=== PATIENT | male | born 1955 | race Caucasian/White ===

== ENCOUNTER 2018-07-19 21:16 | Emergency (ER) | payer MEDICAID, OTHER ==
[~2018-07-19] VITALS: Ht 177.8 cm; Wt 99.8 kg
[~2018-07-19 21:16] MED LIST: OMEP40EC1 PO; PAX20 PO
--- NOTE | 2018-07-19 21:18 | NUR ---
PT TAKEN TO BED 8
[2018-07-19 21:20] VITALS: BP 115/92
--- NOTE | 2018-07-19 21:20 | NUR ---
PT BIB FAMILY AND RECEIVED TO BED 8 VIA W/C. ASSUMED CARE OF PT AT THIS TIME. C/O ETOH INTOXICATION AND ANXIETY. PT IS TEARFUL W/ INCOHERENT, SLURRED SPEECH.0/10 PAIN NOTED AT THIS TIME; VSS; PATIENT POSITIONED FOR COMFORT; HOB ELEVATED; BEDRAILS UP X2; BED DOWN. ER MD MADE AWARE OF PT STATUS. WILL CONTINUE TO MONITOR.
--- NOTE | 2018-07-19 21:25 | NUR ---
PT DISROBED COMPLETELY AND PLACED IN HOPSITAL GOWN AND SLIPPERS. ALL PERSONAL BELONGINGS PLACED IN BAGS AND HANDED OVER TO DAUGHTER FOR SAFEKEEPING. ALL BEDSIDE EQUIPMENT REMOVED AND CABINETS LOCKED OR SECURED IN PLACE. SITTER PLACED AT BEDSIDE FOR OBSERVATION.
[2018-07-19] MEDS ORDERED: NACL 0.9% 1,000 ML IV ONE (21:30)
--- NOTE | 2018-07-19 21:44 | NUR ---
EKG PERFORMED AT BEDSIDE. PT COVERED IN GOWN DURING PROCEDURE
--- NOTE | 2018-07-19 21:51 | NUR ---
Dr. Ortiz evaluating patient at bedside.
[2018-07-19 21:55] LABS: BASOPHILS % (AUTO) 0.4 % (0.0-2.0); EOSINOPHILS # (AUTO) 0.1 K/uL (0-0.4); EOSINOPHILS % (AUTO) 1.2 % (0.0-4.0); MEAN CORPUSCULAR HEMOGLOBIN 30 pg (27-31); MONOCYTES # (AUTO) 0.6 K/uL (0.8-1.0)
[2018-07-19] MEDS ORDERED: LORazepam 2 MG/ML VIAL IVP ONE (22:05)
[2018-07-19 22:10] LABS: HEMATOCRIT 47.5 % (36-52); HEMOGLOBIN 16.1 g/dL (12.0-18.0); MEAN CORPUSCULAR HGB CONC 34 g/dL (33-37); MONOCYTES % (AUTO) 6.3 % (1.7-9.3); NEUTROPHILS # (AUTO) 6.8 K/uL (1.8-7.7); NEUTROPHILS % (AUTO) 71.1 % (42.2-75.2); PLATELET COUNT (AUTO) 296 K/uL (140-450); WHITE BLOOD COUNT (AUTO) 9.5 K/uL (4.8-10.8)
--- NOTE | 2018-07-19 22:17 | NUR ---
PT MOVED TO BED 6
[2018-07-19 22:23] LABS: ANION GAP 12.8 (8-16); CHLORIDE 109 mmol/L (98-107); GFR ARICAN-AMERICAN 98 mL/min (>90); GLUCOSE 94 mg/dL (74-106); POTASSIUM 3.8 mmol/L (3.5-5.1); SODIUM SERUM 145 mmol/L (136-145); UREA NITROGEN, BLOOD 12 mg/dL (7-18)
[2018-07-19 22:28] LABS: ALBUMIN 3.7 g/dL (3.4-5.0); ASPARTATE AMINOTRANSFERASE 27 U/L (15-37); SALICYLATE 2.8 mg/dL (2.8-20.0); TOTAL BILIRUBIN 0.2 mg/dL (0.0-1.0)
[2018-07-19 22:29] LABS: ACETAMINOPHEN < 0.5 ug/ml (10-30)
[2018-07-19 22:55] LABS: BARBITURATE, URINE NEG. ng/ml (NEG <=200); BENZODIAZEPINE, URINE NEG. ng/mL (NEG <=200); CANNABINOID, URINE NEG. ng/mL (NEG <=50); COCAINE, URINE NEG. ng/mL (NEG <=300); OPIATE, URINE NEG. ng/mL (NEG <=2000); PHENCYCLIDINE SCREEN,URINE NEG. ng/mL (NEG <=25)
--- NOTE | 2018-07-20 02:33 | NUR ---
[place] [employer] AT BEDSIDE
[2018-07-20 02:40] VITALS: BP 104/64
--- NOTE | 2018-07-20 02:40 | NUR ---
Patient discharged with v/s stable. Written and verbal after care instructions given and explained. Patient verbalized understanding. Ambulatory with steady gait. All questions addressed prior to discharge. Advised to follow up with PMD.
== END 2018-07-20 02:40 | disposition home or self-care (01) ==
LOC: MED 21:16
DX: F10.129 Alcohol abuse with intoxication, unspecified (principal); I10 Essential (primary) hypertension; Z85.9 Personal history of malignant neoplasm, unspecified; Z86.73 Personal history of transient ischemic attack (TIA), and cerebral infarction without residual deficits; Z79.899 Other long term (current) drug therapy; Y90.8 Blood alcohol level of 240 mg/100 ml or more
CPT/HCPCS: 36415; 80053; 80305; 81002; 85025; 93005; 96374; 99284; G0480; G0482; J2060; J7030

== ENCOUNTER 2019-03-25 12:44 | Emergency (ER) | payer OTHER, MEDICAID ==
[~2019-03-25] VITALS: Ht 172.7 cm; Wt 91.2 kg
[~2019-03-25 12:44] MED LIST changes: -OMEP40EC1 PO; +OMEP40EC24 PO
[2019-03-25 13:02] VITALS: BP 126/84
--- NOTE | 2019-03-25 13:48 | NUR ---
DIANA FERGUSON AT BEDSIDE
[2019-03-25] MEDS ORDERED: KETOROLAC 60 MG/2 ML VIAL IM ONE (14:00)
--- NOTE | 2019-03-25 14:09 | NUR ---
[facility] IM ADMINISTERED
--- NOTE | 2019-03-25 14:10 | NUR ---
C/O LLQ PAIN RADIATING TO L LOWER BACK, SHARP & 5/10, FREQUENT URINATION, DYSURIA, NOCTURIA ACCOMPANIED BY NAUSEA AND WEAKNESS X 3 DAYS. DENIES VOMITING, DIARRHEA, FEVER. BOWEL SOUNDS ACTIVE IN ALL 4 QUADRANTS. ABDOMEN SOFT AND ROUND. VSS. AA0X4. BED IS DOWN, LOCKED, BED RAIL X 1, ERMD TO SEE PT. HX: HTN, ENLARGED PROSTATE, PAIN MGMT FOR R KNEE PROBLEMS , DEPRESSION/ANXIETY RX: EFFEXOR, BP MED UNKNOWN, NORCO
--- NOTE | 2019-03-25 14:28 | NUR ---
PT AT CT
[2019-03-25 14:58] LABS: BASOPHILS % (AUTO) 0.4 % (0.0-2.0); EOSINOPHILS # (AUTO) 0.1 K/uL (0-0.4); EOSINOPHILS % (AUTO) 1.5 % (0.0-4.0); HEMOGLOBIN 14.8 g/dL (12.0-18.0); LYMPHOCYTES # (AUTO) 1.8 K/uL (2.0-11.5); LYMPHOCYTES % (AUTO) 22.7 % (20.5-51.1); MEAN CORPUSCULAR HEMOGLOBIN 30 pg (27-31); MEAN CORPUSCULAR HGB CONC 34 g/dL (33-37); MEAN CORPUSCULAR VOLUME 88.5 fL (80-94); MONOCYTES # (AUTO) 0.7 K/uL (0.8-1.0); MONOCYTES % (AUTO) 9.4 % (1.7-9.3); NEUTROPHILS # (AUTO) 5.1 K/uL (1.8-7.7); PLATELET COUNT (AUTO) 252 K/uL (140-450); RED BLOOD CELL COUNT(AUTO) 4.97 MIL/uL (4.20-6.10); RED CELL DISTRIBUTION WIDTH 14.4 % (11.6-13.7); WHITE BLOOD COUNT (AUTO) 7.7 K/uL (4.8-10.8)
[2019-03-25 15:11] LABS: ANION GAP 13.4 (8-16); CARBON DIOXIDE 25.1 mmol/L (21-32); CREATININE 0.9 mg/dL (0.7-1.3); POTASSIUM 3.5 mmol/L (3.5-5.1)
[2019-03-25 15:20] LABS: ALBUMIN 3.6 g/dL (3.4-5.0); TOTAL BILIRUBIN 0.4 mg/dL (0.0-1.0)
[2019-03-25 15:24] LABS: APPEARANCE,URINE CLEAR (CLEAR); BILIRUBIN,URINE NEGATIVE (NEGATIVE); BLOOD, URINE NEGATIVE (NEGATIVE); COLOR,URINE YELLOW (YELLOW); LEUKOCYTE ESTERASE ,URINE NEGATIVE (NEGATIVE); NITRITE, URINE NEGATIVE (NEGATIVE); UGLUCOSE NEGATIVE (NEGATIVE)
--- NOTE | 2019-03-25 15:46 | NUR ---
VSS AT THIS TIME. AA0X4. ADRIANAISHAMAR BEDSIDE
[2019-03-25 16:18] VITALS: BP 127/78
--- NOTE | 2019-03-25 16:18 | NUR ---
Patient discharged with v/s stable. Written and verbal after care instructions given and explained. Patient alert, oriented and verbalized understanding of instructions. Ambulatory with steady gait. All questions addressed prior to discharge. ID band removed. Patient advised to follow up with PMD. Rx of FLEXERIL AND IBUPROFEN given. Patient educated on indication of medication including possible reaction and side effects. Opportunity to ask questions provided and answered. PT GIVEN COPY OF RESULTS AND EXCUSE FOR SCHOOL
== END 2019-03-25 16:18 | disposition home or self-care (01) ==
LOC: MED 12:44
DX: K57.90 Diverticulosis of intestine, part unspecified, without perforation or abscess without bleeding (principal); I10 Essential (primary) hypertension; F17.210 Nicotine dependence, cigarettes, uncomplicated; Z86.73 Personal history of transient ischemic attack (TIA), and cerebral infarction without residual deficits; Z79.899 Other long term (current) drug therapy; Z85.9 Personal history of malignant neoplasm, unspecified
CPT/HCPCS: 36415; 74176; 80053; 81003; 83690; 85025; 96372; 99284; J1885

== ENCOUNTER 2020-08-15 05:10 | Emergency (ER) | payer OTHER ==
[~2020-08-15] VITALS: Ht 172.7 cm; Wt 74.8 kg
[2020-08-15 05:10] VITALS: BP 145/82
--- NOTE | 2020-08-15 05:20 | NUR ---
PATIENT BIBA FOR C/O LACERATION ON L PINKY FINGER. BLEEDING CONTROLLED. DRESSING IN PLACE. 0/10 PAIN. PT DROWSY, ABLE TO ANSWER SIMPLE QUESTIONS, NOT ENGAGING IN CONVERSATION, SPEECH IS CLEAR. PERRL. UNABLE TO ASSESS PMH NKA
--- NOTE | 2020-08-15 06:12 | NUR ---
DR GOLDBERG AT BEDSIDE EXAMINING PATIENT
[2020-08-15] MEDS ORDERED: cefTRIAXone 1,000 MG in LIDOCAINE MPF 1% 2.1 ML IM ONE (06:20)
[2020-08-15] MEDS ORDERED: LIDOCAINE MPF 2% 100 MG/5 ML VIAL INJ ONE (06:20)
--- NOTE | 2020-08-15 06:31 | NUR ---
RAD AT BEDSIDE
[2020-08-15] MEDS ORDERED: cefTRIAXone 1,000 MG VIAL ONE (06:43)
[2020-08-15] MEDS ORDERED: LIDOCAINE MPF 1% 5 ML ONE (06:43)
--- NOTE | 2020-08-15 07:15 | NUR ---
TRANSFER OF CARE AT THIS TIME FROM [facility]LAH[facility].
--- NOTE | 2020-08-15 07:35 | NUR ---
ASSISTED ERMD WITH POSITIONING PTS HANDS AND FOR LACERATION REPAIR.
--- NOTE | 2020-08-15 08:22 | NUR ---
Called pts family member Frank to notify them of pts discharge. Family did not answer phone, left voicemail for family to olive picker pt at earliest convenience.
[2020-08-15] MEDS ORDERED: BACITRACIN OINT 500 UNITS/GM PKT TP ONE ×2 (08:25→08:47)
--- NOTE | 2020-08-15 08:37 | NUR ---
Called pts So Cifuentes, no answer. Will call back and follow up.
[2020-08-15 09:08] VITALS: BP 122/68
--- NOTE | 2020-08-15 09:08 | NUR ---
Patient discharged with v/s stable. Written and verbal after care instructions given and explained. Patient verbalized understanding. Wheel Chair Assisted with to home. All questions addressed prior to discharge. Advised to follow up with PMD.
== END 2020-08-15 09:08 | disposition home or self-care (01) ==
LOC: MED 05:10
DX: S61.217A Laceration without foreign body of left little finger without damage to nail, initial encounter (principal); I10 Essential (primary) hypertension; Z86.73 Personal history of transient ischemic attack (TIA), and cerebral infarction without residual deficits; Z85.89 Personal history of malignant neoplasm of other organs and systems; W26.8XXA Contact with other sharp object(s), not elsewhere classified, initial encounter; Y93.89 Activity, other specified; Y92.89 Other specified places as the place of occurrence of the external cause; Y99.8 Other external cause status
CPT/HCPCS: 12002; 73120; 90471; 90715; 96372; 99285; J0696; J2001

== ENCOUNTER 2020-08-24 17:03 | Emergency (ER) | payer OTHER ==
[~2020-08-24] VITALS: Ht 177.8 cm; Wt 95.3 kg
[2020-08-24 17:04] VITALS: BP 126/87
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
--- NOTE | 2020-08-24 17:07 | NUR ---
WILBERTO ALS TAKEN TO BED 5
--- NOTE | 2020-08-24 17:52 | NUR ---
emergency veterinary technician transported patient via [facility].
--- NOTE | 2020-08-24 18:25 | NUR ---
Dr. Montalvo is reevaluating patient at bedside.
--- NOTE | 2020-08-24 19:00 | NUR ---
Contacted Sonia (Daughter) who stated that he normally is homeless and does not have a place to stay. She does not feel safe with him to be discharged back home due to patient being off his medications (daughter unable to recall) x 3 weeks. Daughter also mentioned that he has a hx of alcoholism, bipolar, manic depression, S.I, kidney injury, HTN, and a fall with brain bleed which he was hospitalized in the ICU @ [place] in . Advised daughter I will update her with any status updates regarding his discharge planning.
--- NOTE | 2020-08-24 19:13 | NUR ---
Dr. Montalvo made aware of phone call with daughter.
[2020-08-24 19:20] VITALS: BP 134/85
--- NOTE | 2020-08-24 19:20 | NUR ---
Patient discharged with v/s stable. Written and verbal after care instructions given and explained. Patient verbalized understanding. Ambulatory with steady gait by cane. All questions addressed prior to discharge. Advised to follow up with PMD.
== END 2020-08-24 19:20 | disposition home or self-care (01) ==
LOC: MED 17:03
DX: S09.8XXA Other specified injuries of head, initial encounter (principal); I10 Essential (primary) hypertension; J44.9 Chronic obstructive pulmonary disease, unspecified; F17.210 Nicotine dependence, cigarettes, uncomplicated; F12.10 Cannabis abuse, uncomplicated; Z86.73 Personal history of transient ischemic attack (TIA), and cerebral infarction without residual deficits; W18.39XA Other fall on same level, initial encounter; Y93.89 Activity, other specified; Y92.89 Other specified places as the place of occurrence of the external cause; Y99.8 Other external cause status
CPT/HCPCS: 70450; 99284

== ENCOUNTER 2020-11-10 13:32 | Emergency (ER) | payer OTHER ==
[~2020-11-10] VITALS: Ht 170.2 cm; Wt 87.1 kg
[2020-11-10 13:43] VITALS: BP 111/59
[2020-11-10 14:20] LABS: BASOPHILS # (AUTO) 0.1 K/uL (0.00-0.22); BASOPHILS % (AUTO) 0.7 % (0.0-2.0); EOSINOPHILS # (AUTO) 0.1 K/uL (0-0.4); EOSINOPHILS % (AUTO) 1.1 % (0.0-4.0); HEMATOCRIT 47.2 % (36-52); HEMOGLOBIN 15.9 g/dL (12.0-18.0); LYMPHOCYTES # (AUTO) 1.6 K/uL (2.0-11.5); LYMPHOCYTES % (AUTO) 21.9 % (20.5-51.1); MEAN CORPUSCULAR HEMOGLOBIN 30 pg (27-31); MEAN CORPUSCULAR HGB CONC 34 g/dL (33-37); MEAN CORPUSCULAR VOLUME 88.2 fL (80-94); MONOCYTES # (AUTO) 0.6 K/uL (0.8-1.0); MONOCYTES % (AUTO) 7.8 % (1.7-9.3); NEUTROPHILS # (AUTO) 4.9 K/uL (1.8-7.7); NEUTROPHILS % (AUTO) 68.5 % (42.2-75.2); PLATELET COUNT (AUTO) 240 K/uL (140-450); RED BLOOD CELL COUNT(AUTO) 5.36 MIL/uL (4.20-6.10); RED CELL DISTRIBUTION WIDTH 14.7 % (11.6-13.7); WHITE BLOOD COUNT (AUTO) 7.2 K/uL (4.8-10.8)
[2020-11-10] MEDS ORDERED: IBUPROFEN 600 MG TAB PO ONE (14:40)
[2020-11-10 14:42] LABS: ANION GAP 16.4 (8-16); CARBON DIOXIDE 23.2 mmol/L (21-32); CHLORIDE 106 mmol/L (98-107); CREATININE 1.3 mg/dL (0.6-1.3); GFR ARICAN-AMERICAN 72 mL/min (>90); GLUCOSE 107 mg/dL (74-106); POTASSIUM 3.6 mmol/L (3.5-5.1); SODIUM SERUM 142 mmol/L (136-145); UREA NITROGEN, BLOOD 18 mg/dL (7-18)
[2020-11-10 14:43] LABS: ACETAMINOPHEN < 0.5 ug/ml (10-30); ALBUMIN 3.7 g/dL (3.4-5.0); ASPARTATE AMINOTRANSFERASE 22 U/L (15-37); SALICYLATE 3.9 mg/dL (2.8-20.0); TOTAL BILIRUBIN 0.2 mg/dL (0.0-1.0)
[2020-11-10] MEDS ORDERED: VENLAFAXINE 37.5 MG TAB PO SCH (21:00)
[2020-11-10 23:39] LABS: BARBITURATE, URINE NEGATIVE ng/ml (NEG <=200); BENZODIAZEPINE, URINE NEGATIVE ng/mL (NEG <=200); CANNABINOID, URINE NEGATIVE ng/mL (NEG <=50); COCAINE, URINE NEGATIVE ng/mL (NEG <=300); OPIATE, URINE NEGATIVE ng/mL (NEG <=2000); PHENCYCLIDINE SCREEN,URINE NEGATIVE ng/mL (NEG <=25)
[2020-11-11 08:43] VITALS: BP 128/72
== END 2020-11-11 08:43 | disposition home or self-care (01) ==
LOC: MED 13:32
DX: F32.9 Major depressive disorder, single episode, unspecified (principal); Z20.822 Contact with and (suspected) exposure to COVID-19; F10.129 Alcohol abuse with intoxication, unspecified; J44.9 Chronic obstructive pulmonary disease, unspecified; F17.200 Nicotine dependence, unspecified, uncomplicated; I10 Essential (primary) hypertension; F11.90 Opioid use, unspecified, uncomplicated; Z86.73 Personal history of transient ischemic attack (TIA), and cerebral infarction without residual deficits; Z79.899 Other long term (current) drug therapy; Z85.9 Personal history of malignant neoplasm, unspecified; Z71.6 Tobacco abuse counseling
CPT/HCPCS: 36415; 80053; 80305; 85025; 87426; 99285; G0480; G0482; U0003

== ENCOUNTER 2021-10-17 00:32 | Emergency (ER) | payer OTHER ==
[~2021-10-17] VITALS: Ht 177.8 cm; Wt 97.5 kg
[2021-10-17 00:37] VITALS: BP 126/57
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
--- NOTE | 2021-10-17 04:53 | NUR ---
PATIENT ELOPED FROM FACILITY. DISCHARGE INSTRUCTIONS NOT GIVEN TO PATIENT. DR. GONZALEZ NOTIFIED.
== END 2021-10-17 04:53 | disposition left against medical advice (07) ==
LOC: MED 00:32
DX: F10.129 Alcohol abuse with intoxication, unspecified (principal); J44.9 Chronic obstructive pulmonary disease, unspecified; I10 Essential (primary) hypertension; Z79.899 Other long term (current) drug therapy; Z86.73 Personal history of transient ischemic attack (TIA), and cerebral infarction without residual deficits; Z85.9 Personal history of malignant neoplasm, unspecified
CPT/HCPCS: 99283

== ENCOUNTER 2022-05-31 09:18 | Emergency (ER) | payer OTHER ==
[~2022-05-31] VITALS: Ht 172.7 cm; Wt 94.4 kg
[2022-05-31 09:23] VITALS: BP 138/102
--- NOTE | 2022-05-31 09:31 | NUR ---
COVID, FLU SWABS DONE.
--- NOTE | 2022-05-31 09:32 | NUR ---
PT AMB TO BED 12.
--- NOTE | 2022-05-31 09:48 | NUR ---
pt taken to imaging via wheelchair
[2022-05-31] MEDS ORDERED: KETOROLAC 30 MG/ML VIAL ONE (10:48)
[2022-05-31] MEDS: KETOROLAC 30 MG/ML VIAL IM ONE ×2 (10:52→10:54)
[2022-05-31] MEDS ORDERED: DEXT30SU56 PO (12:17)
[2022-05-31] MEDS ORDERED: LIDO1ADH47 TP (12:17)
[2022-05-31] MEDS ORDERED: ALBU0.0912 INH (12:17)
[2022-05-31] MEDS ORDERED: NAPR-54 PO (12:17)
[2022-05-31 12:47] VITALS: BP 138/102
--- NOTE | 2022-05-31 12:47 | NUR ---
Patient discharged with v/s stable. Written and verbal after care instructions given and explained. Patient alert, oriented and verbalized understanding of instructions. Ambulatory with steady gait. All questions addressed prior to discharge. ID band removed. Patient advised to follow up with PMD. Rx of naproxen, lidocaine, robitussin, albuterol (sent) given. Patient educated on indication of medication including possible reaction and side effects. Opportunity to ask questions provided and answered.
== END 2022-05-31 12:47 | disposition home or self-care (01) ==
LOC: MED 09:18
DX: S22.32XA Fracture of one rib, left side, initial encounter for closed fracture (principal); Z20.822 Contact with and (suspected) exposure to COVID-19; J40 Bronchitis, not specified as acute or chronic; F17.210 Nicotine dependence, cigarettes, uncomplicated; X58.XXXA Exposure to other specified factors, initial encounter; Y93.89 Activity, other specified; Y92.89 Other specified places as the place of occurrence of the external cause; Y99.8 Other external cause status
CPT/HCPCS: 71111; 87426; 87804; 96372; 99284; J1885

== ENCOUNTER 2022-07-24 23:05 | Emergency (ER) | payer MEDICARE, OTHER ==
[~2022-07-24] VITALS: Ht 172.7 cm; Wt 94.3 kg
[~2022-07-24 23:05] MED LIST changes: +ALBU0.0912 INH; +DEXT30SU56 PO; +LIDO1ADH47 TP; +NAPR-54 PO
[2022-07-24 23:20] VITALS: BP 124/87
--- NOTE | 2022-07-24 23:22 | NUR ---
PT WILBERTO SALOMON. TAKEN TO ER CHAIR
--- NOTE | 2022-07-24 23:26 | NUR ---
Patient BIB by [facility] from street. C/O ETOH x today. Per reported, patient was drinking alcohol. Bystander called 911. Patient found and was laying down on front yard with alcohol bottles. PMHx: Unknown this time, Patient was intoxication and confused.
--- NOTE | 2022-07-24 23:49 | NUR ---
Patient being evaluated by physician at bedside.
--- NOTE | 2022-07-24 23:50 | NUR ---
Cliff aranda in [facility] - 07/24/[address] at [address] Thomas examining patient.
--- NOTE | 2022-07-25 00:02 | NUR ---
PT ROAD TESTED, STEADY AMBULATION. PT GAVE HIS WIFES ADDRESS. HOUSE SUPERVISIOR CONTACTED FOR UBER SET UP.
--- NOTE | 2022-07-25 00:22 | NUR ---
ATTEMPTED TO SET UP TRANSPORTATION, PT LEFT WITHOUT PAPERWORK.
[2022-07-25 00:23] VITALS: BP 124/87
== END 2022-07-25 00:22 | disposition home or self-care (01) ==
LOC: MED 23:05
DX: Z76.5 Malingerer [conscious simulation] (principal); G89.29 Other chronic pain; F10.90 Alcohol use, unspecified, uncomplicated; Z79.899 Other long term (current) drug therapy; Z79.1 Long term (current) use of non-steroidal anti-inflammatories (NSAID); Y90.9 Presence of alcohol in blood, level not specified
CPT/HCPCS: 99283

== ENCOUNTER 2022-07-25 01:21 | Emergency (ER) | payer MEDICARE, OTHER ==
[~2022-07-25] VITALS: Ht 172.7 cm; Wt 94.3 kg
[2022-07-25 01:23] VITALS: BP 125/87
--- NOTE | 2022-07-25 01:26 | NUR ---
PT OFFLOADED TO [facility]
--- NOTE | 2022-07-25 03:25 | NUR ---
pt laying on the floor, asked pt to please get up, didnt answer. security called.
--- NOTE | 2022-07-25 03:26 | NUR ---
verbal medical clearance by . pt has been discharged.
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
[2022-07-25 03:35] VITALS: BP 125/87
--- NOTE | 2022-07-25 03:35 | NUR ---
pt escorted out by [facility] wen.
== END 2022-07-25 03:35 | disposition home or self-care (01) ==
LOC: MED 01:21
DX: R45.1 Restlessness and agitation (principal); Z76.5 Malingerer [conscious simulation]; Z72.89 Other problems related to lifestyle; Z79.899 Other long term (current) drug therapy
CPT/HCPCS: 99281

== ENCOUNTER 2023-12-28 19:53 | Inpatient (IN) | payer BC, OTHER ==
[~2023-12-28] VITALS: Ht 175.3 cm; Wt 102.1 kg
[~2023-12-28 19:53] MED LIST changes: +NAPR-337 PO; -NAPR-54 PO
[2023-12-28 19:59] VITALS: BP 152/91; PULSE 78; RESP 18; TEMP 97.3; O2SAT 98
[2023-12-28 20:39] LABS: BASOPHILS % (AUTO) 0.5 % (0.0-2.0); EOSINOPHILS # (AUTO) 0.4 K/uL (0-0.4); HEMATOCRIT 45.8 % (36-52); HEMOGLOBIN 15.3 g/dL (12.0-18.0); LYMPHOCYTES % (AUTO) 27.2 % (20.5-51.1); MEAN CORPUSCULAR HEMOGLOBIN 29 pg (27-31); MEAN CORPUSCULAR HGB CONC 33 g/dL (33-37); MEAN CORPUSCULAR VOLUME 86.8 fL (80-94); MONOCYTES # (AUTO) 0.7 K/uL (0.8-1.0); MONOCYTES % (AUTO) 9.4 % (1.7-9.3); NEUTROPHILS # (AUTO) 4.3 K/uL (1.8-7.7); NEUTROPHILS % (AUTO) 57.9 % (42.2-75.2); PLATELET COUNT (AUTO) 215 K/uL (140-450); RED BLOOD CELL COUNT(AUTO) 5.28 MIL/uL (4.20-6.10); RED CELL DISTRIBUTION WIDTH 15.9 % (11.6-13.7); WHITE BLOOD COUNT (AUTO) 7.5 K/uL (4.8-10.8)
[2023-12-28] MEDS: MORPHINE SULFATE 4 MG/ML SYR IVP ONE (20:49)
[2023-12-28 20:53] LABS: ANION GAP 11.2 (8-16); CARBON DIOXIDE 28.6 mmol/L (21-32); CREATININE 1.1 mg/dL (0.6-1.3); POTASSIUM 3.8 mmol/L (3.5-5.1)
[2023-12-28] MEDS: ASPIRIN 81 MG TAB.CHEW PO ONE (21:24)
[2023-12-28] MEDS ORDERED: ONDANSETRON 4 MG/2 ML VIAL IVP PRN (22:30)
[2023-12-28] MEDS ORDERED: ACETAMINOPHEN 325 MG TAB PO PRN (22:30)
[2023-12-28] MEDS: NACL 0.9% 1,000 ML IV SCH (23:14)
[2023-12-28] MEDS ORDERED: OMEP20EC11 PO (23:42)
[2023-12-28] MEDS ORDERED: ABI10 PO (23:42)
[2023-12-28] MEDS ORDERED: BUPR150T12 PO (23:42)
[2023-12-29] VITALS (7 sets, daily range): BP systolic 111–122; BP diastolic 54–79; PULSE 64–84; RESP 18; TEMP 97–98.4; O2SAT 92–98
[2023-12-29] MEDS: MORPHINE SULFATE 2 MG/ML SYR IVP PRN (01:10)
[2023-12-29 05:43] LABS: BASOPHILS # (AUTO) 0.1 K/uL (0.00-0.22); BASOPHILS % (AUTO) 0.9 % (0.0-2.0); EOSINOPHILS # (AUTO) 0.4 K/uL (0-0.4); EOSINOPHILS % (AUTO) 5.3 % (0.0-4.0); HEMOGLOBIN 14.7 g/dL (12.0-18.0); LYMPHOCYTES # (AUTO) 2.1 K/uL (2.0-11.5); LYMPHOCYTES % (AUTO) 30.3 % (20.5-51.1); MEAN CORPUSCULAR HEMOGLOBIN 29 pg (27-31); MEAN CORPUSCULAR HGB CONC 33 g/dL (33-37); MEAN CORPUSCULAR VOLUME 87.7 fL (80-94); MONOCYTES # (AUTO) 0.6 K/uL (0.8-1.0); MONOCYTES % (AUTO) 9.3 % (1.7-9.3); NEUTROPHILS # (AUTO) 3.7 K/uL (1.8-7.7); NEUTROPHILS % (AUTO) 54.2 % (42.2-75.2); PLATELET COUNT (AUTO) 186 K/uL (140-450); RED BLOOD CELL COUNT(AUTO) 5.02 MIL/uL (4.20-6.10); RED CELL DISTRIBUTION WIDTH 15.7 % (11.6-13.7); WHITE BLOOD COUNT (AUTO) 6.9 K/uL (4.8-10.8)
[2023-12-29 06:07] LABS: ANION GAP 9.4 (8-16); CALCIUM 8.7 mg/dL (8.5-10.1); CARBON DIOXIDE 29.3 mmol/L (21-32); POTASSIUM 3.7 mmol/L (3.5-5.1)
[2023-12-29] MEDS: PARoxetine 20 MG TAB PO SCH (09:38)
[2023-12-29] MEDS: ARIPiprazole 10 MG TAB PO SCH (09:38)
[2023-12-29] MEDS: ECOTRIN 81 MG TABEC PO SCH (09:39)
[2023-12-29] MEDS: PANTOPRAZOLE 40 MG TABEC PO SCH (09:39)
[2023-12-29] MEDS: buPROPion 150 MG TABER PO SCH (09:41)
== END 2023-12-29 17:00 | disposition home or self-care (01) | DRG 392 ==
LOC: MED 19:53 → MTU 23:04
PROVIDERS: ADMIT Hospitalist; ATTEND Hospitalist
DX: K29.70 Gastritis, unspecified, without bleeding (principal); K21.9 Gastro-esophageal reflux disease without esophagitis; Z79.899 Other long term (current) drug therapy
CPT/HCPCS: 36415; 71045; 80048; 83735; 83880; 84484; 85025; 86140; 87081; 93005; 96374; 99285; J2270

== ENCOUNTER 2024-01-19 15:48 | Emergency (ER) | payer BC, OTHER ==
[~2024-01-19] VITALS: Ht 175.3 cm; Wt 95.9 kg
[~2024-01-19 15:48] MED LIST changes: +ABI10 PO; +BUPR150T12 PO; -NAPR-337 PO; +OMEP20EC11 PO
[2024-01-19 15:57] VITALS: BP 119/78; PULSE 77; RESP 18; TEMP 97; O2SAT 96
[2024-01-19] MEDS: oxyCODONE/APAP 5/325 MG 1 TAB TAB PO ONE (16:35)
== END 2024-01-19 17:37 | disposition left against medical advice (07) ==
LOC: MED 15:48
DX: S83.91XA Sprain of unspecified site of right knee, initial encounter (principal); I10 Essential (primary) hypertension; Z79.899 Other long term (current) drug therapy; W01.0XXA Fall on same level from slipping, tripping and stumbling without subsequent striking against object, initial encounter; Y92.89 Other specified places as the place of occurrence of the external cause; Y93.89 Activity, other specified; Y99.8 Other external cause status
CPT/HCPCS: 73562; 99283